=== PATIENT | male | born 1965 | race Hispanic/Latino ===

== ENCOUNTER → 2021-01-20 | Day surgery (SDC) | payer OTHER ==
[2021-01-19 11:45] VITALS: BP 130/83
[2021-01-19 11:55] LABS: BASOPHIL # 0.1 10^3/uL (0.0-0.1); BASOPHIL % 0.7 % (0.0-0.2); EOSINOPHIL # 0.2 10^3/uL (0.0-0.2); EOSINOPHIL % 2.6 % (0.0-5.0); LYMPHOCYTES # 2.72 10^3/uL1 (1.0-4.8); LYMPHOCYTES % 31.3 % (24.0-44.0); MEAN CORP HGB 31.6 pg (26-34); MONOCYTES # 0.5 10^3/uL (0.3-0.8); MONOCYTES % 6.1 % (5.0-12.0); NEUTROPHIL # 5.1 10^3/uL (1.8-7.7); NEUTROPHILS % 59.2 % (41.0-85.0); PLATELET COUNT 289 10^3/uL (150-400); RED CELL DISTRIBUTION WIDTH 12.2 % (11.5-14.5)
[2021-01-19 12:11] LABS: CALCIUM 8.8 mg/dL (8.4-10.5); CARBON DIOXIDE 23.4 mmol/L (20.0-32)
[~2021-01-20] VITALS: Ht 170.2 cm; Wt 103.9 kg
[2021-01-20] VITALS (17 sets, daily range): BP systolic 105–163; BP diastolic 64–101
[~2021-01-20] MED LIST: ATOR10TA PO; CELE200C PO; GLIM2TAB7 PO; LACTATED RINGERS 1,000 ML IV SCH; LEVAQUIN 100 ML IV ONE; METF500T17 PO; NS 1000ML 1,000 ML IV ONE; NS 1000ML 1,000 ML ONE; SODIUM CHLORIDE IRR BOTTLE IR ONE; SUBLIMAZE ONE; ULTRAM ONE; ULTRAM PO PRN; VENTOLIN IH ONE; VENTOLIN IH PRN; VERSED ONE
--- NOTE | 2021-01-20 10:51 | OPH ---
DATE OF SURGERY: 01/20/2021 DICTATOR NAME: Guanaco Christianson MD PREOPERATIVE DIAGNOSES: Cystic nodule of the prepuce plus phimosis. FINAL DIAGNOSES: Cystic nodule of the prepuce plus phimosis. PROCEDURE: Circumcision. DESCRIPTION OF PROCEDURE: The patient was brought to the operating room and was put in supine position on the operating room table. After the patient was given satisfactory and adequate LMA general anesthesia, the genitalia were then prepped and draped aseptically in the usual manner. First, a circumferential incision was done and the mucosa around 1 centimeter from the coronal sulcus and then the proposed incision was done at the skin. The skin and the mucosa was excised circumferentially. All bleeders were clamped and ligated with 2-0 Vicryl and some area was fulgurated. After adequate hemostasis, the skin and the mucosa was then approximated with a 2-0 chromic catgut in interrupted fashion. After this was done, there is no bleeding noted. Dressing was applied. The patient was then awakened and was transferred to the recovery room in stable condition. Guanaco Christianson MD DR: BOB TID: [id number] RECEIPT: [id number]
== END | disposition home or self-care (01) ==
LOC: SDC 06:45
PROVIDERS: ATTEND Urology
DX: N47.1 Phimosis (principal); N47.4 Benign cyst of prepuce; F17.210 Nicotine dependence, cigarettes, uncomplicated; I10 Essential (primary) hypertension; E11.9 Type 2 diabetes mellitus without complications; Z79.899 Other long term (current) drug therapy; Z79.84 Long term (current) use of oral hypoglycemic drugs; Z72.89 Other problems related to lifestyle; Z98.890 Other specified postprocedural states; Z90.49 Acquired absence of other specified parts of digestive tract; Z83.3 Family history of diabetes mellitus; Z79.01 Long term (current) use of anticoagulants
CPT/HCPCS: 36415; 54161; 80048; 82948 ×2; 83036; 85025; 85610; 85730; 88305; 94640; A4217; J1956; J2250; J3010; J7030; J7613